=== PATIENT | male | born 1990 | race African-American/Black ===

== ENCOUNTER 2025-06-22 18:50 | Inpatient (IN) | payer OTHER, SELFPAY ==
[2025-06-22 19:36] VITALS: BMI 17.3
[2025-06-22 19:37] VITALS: BP 149/80; PULSE 83; RESP 18; TEMP 36.8; O2SAT 96
[2025-06-22 20:00] VITALS: BP 142/96; PULSE 84; RESP 16; TEMP 37.1; O2SAT 99
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
--- NOTE | 2025-06-22 23:12 | HO.PM.IMCN ---
History of Present Illness Data of Consult Service Date: 06/22/25 Requesting physician: Perez Recinos Primary Care Provider: Unknown Physician HPI Reason for consult: medical H+P Pt is a 35 yo male with no significant pmhx admitted to M5 adult psych from [facility] for depression, anxiety and paranoia. pt is guarded and provides minimal history but is plesant. denies any medical history or medications. no complaints including chest pain, SOB, headache, change in vision, nausea, vomiting, diarrhea, abd pain, urinary sx, numbness or tingling. states that his gums have been bleeding occasionally when eating and brushing his teeth, has an appt with a dentist soon. Review of Systems Constitutional: Constitutional: Denies body ache(s), Denies chills, Denies fatigue, Denies fever(s) and Denies headache(s) Eyes: Eyes: Denies change in vision ENT: Denies headache(s), Denies nasal congestion and Denies sore throat Cardiovascular: Cardiovascular: Denies chest pain, Denies rapid heart rate, Denies leg edema, Denies lightheadedness and Denies dyspnea Respiratory: Respiratory: Denies chest congestion, Denies cough, Denies dyspnea and Denies wheezing Gastrointestinal: Gastrointestinal: Denies abdominal pain, Denies nausea and Denies vomiting Genitourinary: Genitourinary: Denies dysuria and Denies urinary urgency Musculoskeletal: Musculoskeletal: Denies back pain Integumentary/Breasts: Skin/Breast: Denies rash Neurologic: Denies confusion and Denies headache(s) Psychiatric: Psychiatric: Denies confusion Endocrine: Endocrine: Denies fatigue Hematologic/Lymphatic: Hematologic/Lymphatic: Denies easy bleeding and Denies easy bruising Allergic/Immunologic: Allergic/Immunologic: Denies wheezing PMFSH Social History Household Members: Family Household Members Other:: MOTHER AND 2 BROTHERS Housing: House Do you presently have visiting nurse or other home services: No Patient Tobacco Use Status: Never used Tobacco Currently Displaying Signs/Symptoms of Drug Intoxication Withdrawal: No Have you been hit, kicked, punched, or otherwise hurt by someone within the past year? If so, by whom?: No Do you feel safe in your current relationship?: No Current Relationship Is there a partner from a previous relationship who is making you feel unsafe now?: No Are you made to feel afraid or neglected: No Advance Directives: No Advance Directives Information Provided: No Do you have thoughts of harming others: None Do you have a plan to hurt others: No Plan Recently lost weight without trying: Yes How much weight loss: Unsure Eating poorly because of decreased appetite: No Nutrition screen score: 4 Meds Allergies Allergy/AdvReac Type Severity Reaction Status Date / Time No Known Allergies Allergy Verified 06/22/25 19:34 Active Medications: Current Medications Acetaminophen (Acetaminophen 325 Mg Tablet) 650 mg PO Q6H PRN PRN Reason: Headache/Pain, Scale 1-10 Al Hydroxide/Mg Hydroxide (Magnesium Hydrox/Alum Hydrox 30 Ml Oral.Susp) 30 ml PO Q6H PRN PRN Reason: Heartburn/Nausea Hydroxyzine HCl (Hydroxyzine Hcl 25 Mg Tablet) 25 mg PO Q6H PRN PRN Reason: mild anxiety Magnesium Hydroxide (Milk Of Magnesia 30 Ml Oral.Susp) 30 ml PO DAILY PRN PRN Reason: Constipation Nicotine (Nicotine 21 Mg Patch.Td24) 21 mg TRANSDERMA DAILY PRN PRN Reason: nicotine craving Nicotine Polacrilex (Nicotine Polacrilex 2 Mg Gum) 2 mg BUCCAL Q2H PRN PRN Reason: Nicotine Cravings Olanzapine (Olanzapine 5 Mg Tablet) 5 mg PO BID PRN PRN Reason: agitation Trazodone HCl (Trazodone Hcl 50 Mg Tablet) 50 mg PO BEDTIME MRX1 PRN PRN Reason: Insomnia Physical Exam Vital Signs and Narrative: Vital Signs: Last Vital Signs Temp 98.7 F 06/22/25 20:00 Pulse 84 06/22/25 20:00 Resp 16 06/22/25 20:00 BP 142/96 H 06/22/25 20:00 Pulse Ox 99 06/22/25 20:00 O2 Del Method Room Air 06/22/25 20:00 BMI result Body Mass Index 17.3 General: AOx3, no acute distress, thin HEENT: no obvious bleeding from gums at this time Resp: CTA bilaterally CVS: S1, S2, RRR GI: +BS, NT, no distention Skin: Warm, dry Neuro: Cranial nerves II-XII grossly intact bilaterally. Motor grossly intact bilaterally. equal strength and sensation bilateral upper and lower extremities. Extremities: No pitting edema Psych: Appropriate affect Const: General: No confusion Orientation/consciousness: No confusion Neuro: General: No confusion Assessment and Plan (1) Medical clearance for psychiatric admission: Status: Acute (2) Tobacco use disorder: Status: Acute Plan Pt is a 35 yo male with no significant pmhx admitted to adult psych from [facility] for depression, anxiety and paranoia. mood disorder - plan per psych tobacco use disorder - smoking cessation encouraged - nicotine patch f/u with dentist outpt for ?gingivitis Thank you for allowing me to participate in the pt's care. Signing off. Please contact the medical team if any questions or concerns.
[2025-06-23 07:52] VITALS: BP 122/71; PULSE 77; RESP 18; TEMP 36.5; O2SAT 100
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
--- NOTE | 2025-06-23 13:34 | PC.NURSE ---
Re: Ashly. Discussed smoking history with patient. He declines referral to [facility] at this time because he feels that he is not addicted to smoking and does not need to quit at this time
[2025-06-23 20:00] VITALS: BP 140/76; PULSE 75; RESP 16; TEMP 37.6; O2SAT 98
[2025-06-24 07:00] VITALS: BMI 18.3
[2025-06-24 07:58] VITALS: BP 135/76; PULSE 75; TEMP 36.4; O2SAT 99
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
[2025-06-24 20:00] VITALS: BP 133/80; PULSE 85; RESP 16; TEMP 36.1; O2SAT 98
[2025-06-25 08:00] VITALS: BP 126/85; PULSE 72; RESP 16; TEMP 35.5; O2SAT 99
[2025-06-25 08:53] LABS: Hemoglobin A1C 140.6396 umol/L; Total Hemoglobin (HGBA1C) 3972.4394 umol/L
[2025-06-25 09:04] LABS: Alanine Aminotransferase 22 U/L (0-40); Albumin Level 5.1 g/dL (3.5-5.0); Alkaline Phosphatase 66 U/L (39-117); Anion Gap 14 (12-20); Aspartate Amino Transferase 29 U/L (5-37); Blood Urea Nitrogen 8 mg/dL (9-16); Calcium 9.9 mg/dL (8.4-10.2); Carbon Dioxide 29 mmol/L (22-29); Chloride 105 mmol/L (96-108); Cholesterol 205 mg/dL (<200); Creatinine Clr Calc Pharmacy 125.1; Estimated Glomerular Filt Rate > 60; HDL Cholesterol 72 mg/dL (>40); Potassium 3.9 mmol/L (3.3-5.1); Sodium 144 mmol/L (135-145); Total Protein 7.7 g/dL (6.5-8.0); Triglycerides 61 mg/dL (<150)
[2025-06-25 09:20] LABS: Free T4 (Free Thyroxine) 1.16 ng/dL (0.71-1.85); Thyroid Stimulating Hormone 1.89 uIU/mL (0.32-4.0)
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
[2025-06-25 20:00] VITALS: BP 136/83; PULSE 109; TEMP 36.4; O2SAT 99
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
[2025-06-26 08:00] VITALS: BP 138/83; PULSE 78; RESP 18; TEMP 36; O2SAT 98
[2025-06-26 20:00] VITALS: BP 124/63; PULSE 108; TEMP 36.4; O2SAT 98
[2025-06-27 08:00] VITALS: BP 114/83; PULSE 69; RESP 18; TEMP 36.1; O2SAT 99
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
[2025-06-27 20:00] VITALS: BP 124/64; PULSE 100; RESP 18; TEMP 37.1; O2SAT 98
[2025-06-28 08:00] VITALS: BP 134/86; PULSE 88; RESP 16; TEMP 2.1; TEMP 35.8; O2SAT 99
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
[2025-06-28 20:00] VITALS: BP 145/84; PULSE 100; RESP 16; TEMP 36.6; O2SAT 99
[2025-06-29 08:00] VITALS: BP 158/78; PULSE 100; RESP 16; TEMP 36.6; O2SAT 99
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
[2025-06-29 20:00] VITALS: BP 124/73; PULSE 93; RESP 16; TEMP 36.4; O2SAT 99
[2025-06-30 08:19] VITALS: BP 159/75; PULSE 88; RESP 16; TEMP 36.9; O2SAT 99
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
[2025-06-30 20:00] VITALS: BP 145/80; PULSE 110; RESP 20; TEMP 36.9; O2SAT 99
[2025-06-30] MEDS: Mag&Al/Sim/Diphenhyd/Lidocaine 10 ML ORAL.SUSP PO (22:09)
[2025-07-01 08:00] VITALS: BP 130/68; PULSE 93; RESP 18; TEMP 36.7; O2SAT 99
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
== END 2025-07-01 09:36 | disposition home or self-care (01) | DRG 885 ==
PROVIDERS: Nurse Practitioner Psychiatric/Mental Health; Admitting Provider Psychiatry & Neurology Psychiatry; Visit Provider Clinical Nurse Specialist Psychiatric/Mental Health, Adult
DX: F29 Unspecified psychosis not due to a substance or known physiological condition (principal); F43.10 Post-traumatic stress disorder, unspecified; F17.210 Nicotine dependence, cigarettes, uncomplicated; F41.9 Anxiety disorder, unspecified; Z71.6 Tobacco abuse counseling; Z79.899 Other long term (current) drug therapy
CPT/HCPCS: 36415; 80053; 80061; 83036; 84439; 84443

== ENCOUNTER → 2025-06-22 18:50 | Outpatient (BNV) | payer OTHER, SELFPAY | PROVIDERS: Admitting Provider Psychiatry & Neurology Psychiatry; Visit Provider Nurse Practitioner Psychiatric/Mental Health | DX: F32.3 Major depressive disorder, single episode, severe with psychotic features (principal); F41.9 Anxiety disorder, unspecified; F43.11 Post-traumatic stress disorder, acute | CPT/HCPCS: 90792; 99232 ==

== ENCOUNTER → 2025-06-22 18:50 | Outpatient (BNV) | payer OTHER, SELFPAY | PROVIDERS: Admitting Provider Psychiatry & Neurology Psychiatry; Visit Provider Physician Assistant | DX: Z00.8 Encounter for other general examination (principal); F17.200 Nicotine dependence, unspecified, uncomplicated | CPT/HCPCS: 99222 ==